=== PATIENT | female | born 1950 | race Hispanic/Latino ===

== ENCOUNTER 2017-07-06 11:29 | Emergency (ER) | payer MEDICARE ==
[~2017-07-06] VITALS: Ht 167.6 cm; Wt 73.0 kg
[~2017-07-06 11:29] MED LIST: ALBUTEROL SUL0.083 % IN; AMOXICILLIN500 M2 PO; CIPROFLOXACN500 MG PO; LORTAB 5-325 MG1 TAB PO; MEDDOSEPAK PO; TYLENOL # 31 TAB PO
[2017-07-06] MEDS ORDERED: FAMVIR500 MG PO (12:50)
[2017-07-06 13:07] VITALS: BP 127/68
== END 2017-07-06 13:12 | disposition home or self-care (01) ==
LOC: ED 11:29
DX: B00.2 Herpesviral gingivostomatitis and pharyngotonsillitis (principal)

== ENCOUNTER 2018-04-15 13:57 | Emergency (ER) | payer MEDICARE ==
[~2018-04-15] VITALS: Ht 167.6 cm; Wt 71.0 kg
[~2018-04-15 13:57] MED LIST changes: +FAMVIR500 MG PO
[2018-04-15] MEDS ORDERED: IBUPROFEN600 MG PO (14:57)
[2018-04-15] MEDS ORDERED: MIRACLEMM PO (14:57)
[2018-04-15 15:05] VITALS: BP 152/80
== END 2018-04-15 15:05 | disposition home or self-care (01) ==
LOC: ED 13:57
DX: K13.79 Other lesions of oral mucosa (principal); B97.89 Other viral agents as the cause of diseases classified elsewhere; F32.9 Major depressive disorder, single episode, unspecified; E78.00 Pure hypercholesterolemia, unspecified; Z85.840 Personal history of malignant neoplasm of eye; Z92.3 Personal history of irradiation; Z92.21 Personal history of antineoplastic chemotherapy; Z90.01 Acquired absence of eye

== ENCOUNTER 2018-09-14 15:44 | Emergency (ER) | payer MEDICARE ==
[~2018-09-14] VITALS: Ht 167.6 cm; Wt 71.8 kg
[~2018-09-14 15:44] MED LIST changes: +IBUPROFEN600 MG PO; +MIRACLEMM PO
[2018-09-14] MEDS ORDERED: LEXAPRO10 MG PO (15:58)
[2018-09-14] MEDS ORDERED: LYRICA50 MG PO (15:59)
[2018-09-14] MEDS ORDERED: PANTOPRAZOLE SO40 MG PO (16:01)
[2018-09-14] MEDS ORDERED: GABAPENTIN100 MG PO (16:01)
[2018-09-14] MEDS ORDERED: XANAX0.25 MG PO (16:03)
[2018-09-14] MEDS ORDERED: MIRACLEMM PO (16:21)
[2018-09-14 16:36] VITALS: BP 130/80
== END 2018-09-14 16:40 | disposition home or self-care (01) ==
LOC: ED 15:44
DX: K12.0 Recurrent oral aphthae (principal); Z92.3 Personal history of irradiation; Z85.840 Personal history of malignant neoplasm of eye

== ENCOUNTER 2019-05-20 11:47 | Emergency (ER) | payer MEDICARE ==
[~2019-05-20] VITALS: Ht 167.6 cm; Wt 71.8 kg
[~2019-05-20 11:47] MED LIST changes: +GABAPENTIN100 MG PO; +LEXAPRO10 MG PO; +LYRICA50 MG PO; +PANTOPRAZOLE SO40 MG PO; +XANAX0.25 MG PO
[2019-05-20] MEDS ORDERED: PREDNISONE50 MG PO (12:20)
[2019-05-20] MEDS ORDERED: [UNRECOGNIZED DRUG - OTHER] OD (12:20)
[2019-05-20] MEDS ORDERED: BENADRYL 25MG C25 MG PO (12:22)
[2019-05-20] MEDS ORDERED: CLARITIN-D1 TA2 PO (12:23)
[2019-05-20 12:45] VITALS: BP 154/80
== END 2019-05-20 12:45 | disposition home or self-care (01) ==
LOC: ED 11:47
DX: H10.11 Acute atopic conjunctivitis, right eye (principal)